=== PATIENT | female | born 1980 | race Caucasian/White ===

== ENCOUNTER → 2016-07-09 | Outpatient (CLI) | payer OTHER | LOC: OD 12:33 | PROVIDERS: ATTEND Internal Medicine Cardiovascular Disease | DX: M62.82 Rhabdomyolysis (principal); E78.00 Pure hypercholesterolemia, unspecified | CPT/HCPCS: 36415; 82550 ==

== ENCOUNTER → 2016-08-06 | Outpatient (CLI) | payer OTHER ==
[2016-08-06 10:08] LABS: CHOLESTEROL 175.95 mg/dL (0-200); Direct HDL 66 mg/dL (>40); TRIGLYCERIDES 51 mg/dL (<150)
[2016-08-06 10:18] LABS: DIRECT LDL 85 mg/dL (<100)
== END ==
LOC: OD 08:58
PROVIDERS: ATTEND Internal Medicine Cardiovascular Disease
DX: E78.00 Pure hypercholesterolemia, unspecified (principal); M62.82 Rhabdomyolysis
CPT/HCPCS: 36415; 80061; 82550

== ENCOUNTER → 2016-09-17 | Outpatient (CLI) | payer OTHER ==
[2016-09-17 11:08] LABS: ANION GAP 11 (5-19); BLOOD UREA NITROGEN 11 mg/dL (7-20); CALCIUM 10.4 mg/dL (8.4-10.2); CARBON DIOXIDE 29 mmol/L (22-30); CHLORIDE 104 mmol/L (98-107); CREATININE RESULT 0.71 mg/dL (0.52-1.25); GLUCOSE 90 mg/dL (75-110); MAGNESIUM 2.3 mg/dL (1.6-2.3); POTASSIUM 5.4 mmol/L (3.6-5.0); SODIUM 143.5 mmol/L (137-145)
== END ==
LOC: OD 09:45
PROVIDERS: ATTEND Internal Medicine Cardiovascular Disease
DX: I10 Essential (primary) hypertension (principal)
CPT/HCPCS: 36415; 80048; 83735

== ENCOUNTER → 2016-11-05 | Outpatient (CLI) | payer OTHER ==
[2016-11-05 12:13] LABS: ALANINE AMINOTRANSFERASE 31 U/L (9-52); ALBUMIN 4.8 g/dL (3.5-5.0); ALKALINE PHOSPHATASE 78 U/L (38-126); ASPARTATE AMINO TRANSFERASE 29 U/L (14-36); BILIRUBIN,DIRECT 0.3 mg/dL (0.0-0.4); BILIRUBIN,TOTAL 0.6 mg/dL (0.2-1.3); CHOLESTEROL 190.97 mg/dL (0-200); CREATINE KINASE 71 U/L (30-135); Direct HDL 72 mg/dL (>40); TOTAL PROTEIN 7.4 g/dL (6.3-8.2); TRIGLYCERIDES 121 mg/dL (<150)
[2016-11-05 12:24] LABS: DIRECT LDL 75 mg/dL (<100)
== END ==
LOC: OD 10:37
PROVIDERS: ATTEND Internal Medicine Cardiovascular Disease
DX: E55.9 Vitamin D deficiency, unspecified (principal); E78.00 Pure hypercholesterolemia, unspecified; I10 Essential (primary) hypertension; M62.82 Rhabdomyolysis
CPT/HCPCS: 36415; 80061; 80076; 82306; 82550

== ENCOUNTER → 2017-03-04 | Outpatient (CLI) | payer OTHER ==
[2017-03-04 11:37] LABS: ALANINE AMINOTRANSFERASE 31 U/L (9-52); ALBUMIN 4.6 g/dL (3.5-5.0); ALKALINE PHOSPHATASE 56 U/L (38-126); ASPARTATE AMINO TRANSFERASE 22 U/L (14-36); BILIRUBIN,DIRECT 0.3 mg/dL (0.0-0.4); BILIRUBIN,TOTAL 0.6 mg/dL (0.2-1.3); TOTAL PROTEIN 6.7 g/dL (6.3-8.2)
== END ==
LOC: OD 10:32
PROVIDERS: ATTEND Internal Medicine Cardiovascular Disease
DX: Z51.81 Encounter for therapeutic drug level monitoring (principal); Z79.899 Other long term (current) drug therapy
CPT/HCPCS: 36415; 80076

== ENCOUNTER → 2017-06-14 | Outpatient (CLI) | payer OTHER ==
[2017-06-14 17:40] LABS: ALANINE AMINOTRANSFERASE 35 U/L (9-52); ALBUMIN 4.9 g/dL (3.5-5.0); ALKALINE PHOSPHATASE 89 U/L (38-126); ANION GAP 11 (5-19); ASPARTATE AMINO TRANSFERASE 39 U/L (14-36); BILIRUBIN,DIRECT 0.1 mg/dL (0.0-0.4); BILIRUBIN,TOTAL 0.3 mg/dL (0.2-1.3); BLOOD UREA NITROGEN 9 mg/dL (7-20); CALCIUM 9.8 mg/dL (8.4-10.2); CARBON DIOXIDE 29 mmol/L (22-30); CHLORIDE 105 mmol/L (98-107); CREATININE RESULT 0.74 mg/dL (0.52-1.25); GLUCOSE 76 mg/dL (75-110); MAGNESIUM 2.1 mg/dL (1.6-2.3); POTASSIUM 4.7 mmol/L (3.6-5.0); SODIUM 144.5 mmol/L (137-145); TOTAL PROTEIN 7.3 g/dL (6.3-8.2)
[2017-06-15 18:25] LABS: CHOLESTEROL 210.93 mg/dL (0-200); Direct HDL 76 mg/dL (>40); TRIGLYCERIDES 117 mg/dL (<150)
[2017-06-15 18:35] LABS: DIRECT LDL 116 mg/dL (<100)
== END ==
LOC: OD 16:35
PROVIDERS: ATTEND Internal Medicine Cardiovascular Disease
DX: E78.00 Pure hypercholesterolemia, unspecified (principal); R00.2 Palpitations; I10 Essential (primary) hypertension; R53.83 Other fatigue
CPT/HCPCS: 36415; 80048; 80061; 80076; 83735

== ENCOUNTER → 2017-07-15 | Outpatient (CLI) | payer OTHER ==
--- NOTE | 2017-07-15 16:26 | RADIOLOGY REPORT (SQ) ---
EXAM DESCRIPTION: CT FACIAL AREA WITHOUT COMPLETED DATE/TIME: 07/15/2017 2:41 pm REASON FOR STUDY: OTHER SUBACUTE SINUSITIS (J01.80) R33.9 RETENTION OF URINE, UNSPECIFIED J01.80 O THER ACUTE SINUSITIS COMPARISON: None. TECHNIQUE: Noncontrasted images through the facial bones and orbits windowed for bone and soft tissu e. Additional coronal and sagittal reconstructed images reviewed. All images stored on PACS. All CT scanners at this facility use dose modulation, iterative reconstruction, and/or weight based d osing when appropriate to reduce radiation dose to as low as reasonably achievable (ALARA). [facility]: Dose Right [facility]: CareDose [facility]: Dose Right [facility]: Teradose 4D [facility]: [employer] RADIATION DOSE: mGy. LIMITATIONS: None. FINDINGS: FACIAL BONES: No fracture or bone lesion. ORBITS: Intact. No fracture. Symmetric intact globes and retroorbital soft tissues. PARANASAL SINUSES: Clear. No significant mucosal thickening, mass or fluid. No nasal polyps. Maxill robert sinus outlets are patent. SOFT TISSUES: No mass or edema. INFERIOR BRAIN: Limited view. No acute findings. OTHER: No other significant finding. IMPRESSION: NO ACUTE FINDINGS. TECHNICAL DOCUMENTATION: JOB ID: [id number] Quality ID # [id number]: Final reports with documentation of one or more dose reduction techniques (e.g., Au tomated exposure control, adjustment of the mA and/or kV according to patient size, use of iterative reconstruction technique) 2010 [employer]- All Rights Reserved
--- NOTE | 2017-07-15 16:28 | RADIOLOGY REPORT (SQ) ---
EXAM DESCRIPTION: U/S NON-OB PELVIS W/O DOP COMPLETED DATE/TIME: 07/15/2017 3:35 pm REASON FOR STUDY: URINE RETENTION (R33.9) R33.9 RETENTION OF URINE, UNSPECIFIED J01.80 OTHER ACUTE SINUSITIS COMPARISON: None. TECHNIQUE: Pre and post void bladder imaging. LIMITATIONS: None. FINDINGS: PREVOID BLADDER VOLUME: 280 ml. POST VOID BLADDER VOLUME: 10 ml. OTHER: No other significant finding. IMPRESSION: NO SONOGRAPHIC ABNORMALITY IN THE BLADDER. BLADDER VOLUMES ABOVE. TECHNICAL DOCUMENTATION: JOB ID: [id number] [employer]- All Rights Reserved
== END ==
LOC: RAD 14:00
PROVIDERS: ATTEND Nurse Practitioner Family
DX: J01.80 Other acute sinusitis (principal); R33.9 Retention of urine, unspecified
CPT/HCPCS: 70486; 76856

== ENCOUNTER → 2017-11-07 | Outpatient (CLI) | payer OTHER ==
[2017-11-07 12:53] LABS: ALANINE AMINOTRANSFERASE 35 U/L (9-52); ALBUMIN 4.7 g/dL (3.5-5.0); ALKALINE PHOSPHATASE 70 U/L (38-126); ANION GAP 10 (5-19); ASPARTATE AMINO TRANSFERASE 27 U/L (14-36); BILIRUBIN,DIRECT 0.3 mg/dL (0.0-0.4); BILIRUBIN,TOTAL 0.3 mg/dL (0.2-1.3); BLOOD UREA NITROGEN 14 mg/dL (7-20); CALCIUM 10.1 mg/dL (8.4-10.2); CARBON DIOXIDE 30 mmol/L (22-30); CHLORIDE 104 mmol/L (98-107); CHOLESTEROL 183.05 mg/dL (0-200); GLUCOSE 102 mg/dL (75-110); POTASSIUM 4.8 mmol/L (3.6-5.0); SODIUM 143.8 mmol/L (137-145); TOTAL PROTEIN 7.1 g/dL (6.3-8.2); TRIGLYCERIDES 112 mg/dL (<150)
[2017-11-07 13:04] LABS: DIRECT LDL 88 mg/dL (<100)
[2017-11-08 07:03] LABS: THYROGLOBULIN AB SO <1.0 IU/mL (0.0-0.9); THYROID PEROXIDASE (TPO) AB 11 IU/mL (0-34)
== END ==
LOC: OD 11:13
PROVIDERS: ATTEND Internal Medicine Cardiovascular Disease
DX: E78.00 Pure hypercholesterolemia, unspecified (principal); R00.2 Palpitations; R94.5 Abnormal results of liver function studies; L50.9 Urticaria, unspecified
CPT/HCPCS: 36415; 80048; 80061; 80076; 84443; 86376; 86800

== ENCOUNTER 2017-11-28 16:51 | Observation (INO) | payer OTHER ==
[2017-11-28] MEDS ORDERED: ASPIRIN 81 MG TABLET, CHEWABLE PO ONE (18:45)
--- NOTE | 2017-11-28 18:47 | ER Document Report ---
ED Medical Screen (RME) - General Chief Complaint: Chest Pain Stated Complaint: CHEST PAIN Time Seen by Provider: 11/28/17 18:41 TRAVEL OUTSIDE OF THE [place] IN LAST 30 DAYS: No - HPI Patient complains to provider of: chest pain Notes: 11/28/17 18:46 Normally healthy 37-year-old female presents with concerning story of episodic crushing chest pain substernal 04/05 without radiation has made her get profoundly short of breath. First episode woke her from sleep Tuesday night. Had another 2 episodes with exertion on Tuesday because you are very concerned. Patient now endorses increased dyspnea with mild exertion. Patient was seen by her PCP Dr. Diaz ( critical care) EKG has T-wave inversions repeated with our EKG here in the department. Concern for possible cardiac etiology of chest pain versus pulmonary embolus. Patient denies any constitutional symptoms or any sick contacts or travel. No history of lung pathology or pneumonia. - Related Data Allergies/Adverse Reactions: No Known Allergies Allergy (Verified 04/08/16 18:08) Past Medical History - Social History Chew tobacco use (# tins/day): No Frequency of alcohol use: Occasional Drug Abuse: Marijuana - Past Medical History Cardiac Medical History: Reports: Hx Hypertension Denies: Hx Coronary Artery Disease, Hx Heart Attack Pulmonary Medical History: Denies: Hx Asthma, Hx Bronchitis, Hx COPD, Hx Pneumonia Neurological Medical History: Reports: Hx Migraine. Denies: Hx Cerebrovascular Accident, Hx Seizures Renal/ Medical History: Denies: Hx Peritoneal Dialysis GI Medical History: Reports: Hx Irritable Bowel. Denies: Hx Hepatitis, Hx Hiatal Hernia, Hx Ulcer Musculoskeltal Medical History: Denies Hx Arthritis Psychiatric Medical History: Reports: Hx Depression Infectious Medical History: Denies: Hx Hepatitis Past Surgical History: Reports: Hx Bowel Surgery - colon resection, rectal prolapse, Hx Cholecystectomy, Hx Gynecologic Surgery, Hx Hysterectomy, Hx Urinary Tract Surgery - bladder/vaginal prolapse. Denies: Hx Mastectomy, Hx Open Heart Surgery, Hx Pacemaker - Immunizations Hx Diphtheria, Pertussis, Tetanus Vaccination: Yes Physical Exam - Vital signs Vitals: Temp Pulse Resp BP Pulse Ox 98.1 F 56 L 18 146/84 H 56 L 11/28/17 17:21 11/28/17 17:21 11/28/17 17:21 11/28/17 17:21 11/28/17 17:21 Course - Vital Signs Vital signs: Temp Pulse Resp BP Pulse Ox 98.1 F 56 L 18 146/84 H 56 L 11/28/17 17:21 11/28/17 17:21 11/28/17 17:21 11/28/17 17:21 11/28/17 17:21 Doctor's Discharge - Discharge Referrals: LICHA DIAZ MD [Primary Care Provider] - Follow up as needed
[2017-11-28 19:11] LABS: ABSOLUTE BASOPHILS # (AUTO) 0.1 10^3/uL (0.0-0.2); ABSOLUTE EOSINOPHILS # (AUTO) 0.2 10^3/uL (0.0-0.6); ABSOLUTE MONOCYTES (AUTO) 0.6 10^3/uL (0.1-1.4); ABSOLUTE NEUT (AUTO) 4.5 10^3/uL (1.7-8.2); BASOPHILS % (AUTO) 0.9 % (0-2); EOSINOPHILS % (AUTO) 2.7 % (0-6); HEMATOCRIT 39.3 % (36.0-47.0); HEMOGLOBIN 13.4 g/dL (12.0-15.5); LYMPHOCYTES % (AUTO) 35.8 % (13-45); MEAN CORPUSCULAR HGB CONC 34.1 g/dL (32.0-36.0); MEAN CORPUSCULAR VOLUME 94 fl (80-97); MONOCYTES % (AUTO) 6.7 % (3-13); PLATELET COUNT 233 10^3/uL (150-450); RED BLOOD COUNT 4.18 10^6/uL (3.72-5.28); RED CELL DISTRIBUTION WIDTH 13.2 % (11.5-14.0); SEGMENTED NEUTROPHILS % (AUTO) 53.9 % (42-78); TOTAL CELLS COUNTED % (AUTO) 100 %; WHITE BLOOD COUNT 8.3 10^3/uL (4.0-10.5)
--- NOTE | 2017-11-28 19:17 | RADIOLOGY REPORT (SQ) ---
EXAM DESCRIPTION: CHEST 2 VIEWS COMPLETED DATE/TIME: 11/28/2017 7:07 pm REASON FOR STUDY: chest pain COMPARISON: 04/28/2015 EXAM PARAMETERS: NUMBER OF VIEWS: two views TECHNIQUE: Digital Frontal and Lateral radiographic views of the chest acquired. RADIATION DOSE: NA LIMITATIONS: none FINDINGS: LUNGS AND PLEURA: No opacities, masses or pneumothorax. No pleural effusion. MEDIASTINUM AND HILAR STRUCTURES: No masses or contour abnormalities. HEART AND VASCULAR STRUCTURES: Heart normal size. No evidence for failure. BONES: No acute findings. HARDWARE: None in the chest. OTHER: No other significant finding. IMPRESSION: NO ACUTE RADIOGRAPHIC FINDING IN THE CHEST. TECHNICAL DOCUMENTATION: JOB ID: [id number] [employer]- All Rights Reserved Reading location - IP/workstation name: [email or web address]
[2017-11-28 19:26] LABS: ANION GAP 9 (5-19); BLOOD UREA NITROGEN 12 mg/dL (7-20); CALCIUM 10.1 mg/dL (8.4-10.2); CARBON DIOXIDE 29 mmol/L (22-30); CHLORIDE 103 mmol/L (98-107); GLUCOSE 83 mg/dL (75-110); POTASSIUM 4.3 mmol/L (3.6-5.0); SODIUM 140.6 mmol/L (137-145)
[2017-11-28 19:39] LABS: NT PRO BNP 34 pg/mL (<125); TROPONIN I < 0.012 ng/mL
--- NOTE | 2017-11-28 20:01 | EKG REPORT ---
SEVERITY:- BORDERLINE ECG - SINUS RHYTHM BORDERLINE T ABNORMALITIES, ANTERIOR LEADS : Confirmed by: Cecilia Gardner MD 28-Nov-2017 20:00:46
--- NOTE | 2017-11-28 21:01 | ER Document Report ---
ED General - General Chief Complaint: Chest Pain Stated Complaint: CHEST PAIN Time Seen by Provider: 11/28/17 18:41 Mode of Arrival: Ambulatory Information source: Patient, Dr. Office - called and spoke with me Notes: 37-year-old female history of hypertension hyperlipidemia mitral valve prolapse presents with complaints of chest pain now 2 day duration. Patient was seen by the weir fisher and sent in for further evaluation care he did note new EKG changes V2 V3 inverted T waves. Patient notes significant family history of coronary artery disease including early deaths and uncle TRAVEL OUTSIDE OF THE [place] IN LAST 30 DAYS: No - HPI Onset: Other - 2 daY DURATION Onset/Duration: Waxing and waning Quality of pain: Pressure Severity: Mild Pain Level: 2 Associated symptoms: Chest pain Exacerbated by: Denies Relieved by: Denies Similar symptoms previously: No Recently seen / treated by doctor: Yes - Related Data Allergies/Adverse Reactions: No Known Allergies Allergy (Verified 04/08/16 18:08) Past Medical History - Social History Smoking Status: Never Smoker Cigarette use (# per day): No Chew tobacco use (# tins/day): No Smoking Education Provided: No Frequency of alcohol use: Occasional Drug Abuse: Marijuana Family History: CAD - Extensive family history of coronary artery disease Patient has suicidal ideation: No Patient has homicidal ideation: No - Past Medical History Cardiac Medical History: Reports: Hx Hypertension Denies: Hx Coronary Artery Disease, Hx Heart Attack Pulmonary Medical History: Denies: Hx Asthma, Hx Bronchitis, Hx COPD, Hx Pneumonia Neurological Medical History: Reports: Hx Migraine. Denies: Hx Cerebrovascular Accident, Hx Seizures Renal/ Medical History: Denies: Hx Peritoneal Dialysis GI Medical History: Reports: Hx Irritable Bowel. Denies: Hx Hepatitis, Hx Hiatal Hernia, Hx Ulcer Musculoskeltal Medical History: Denies Hx Arthritis Psychiatric Medical History: Reports: Hx Depression Infectious Medical History: Denies: Hx Hepatitis Past Surgical History: Reports: Hx Bowel Surgery - colon resection, rectal prolapse, Hx Cholecystectomy, Hx Gynecologic Surgery, Hx Hysterectomy, Hx Urinary Tract Surgery - bladder/vaginal prolapse. Denies: Hx Mastectomy, Hx Open Heart Surgery, Hx Pacemaker - Immunizations Hx Diphtheria, Pertussis, Tetanus Vaccination: Yes Review of Systems - Review of Systems Notes: REVIEW OF SYSTEMS: CONSTITUTIONAL : Denies fever, chills, or sweats. Denies recent illness. EENT: Denies eye, ear, throat, or mouth pain or symptoms. Denies nasal or sinus congestion or discharge. Denies throat, tongue, or mouth swelling or difficulty swallowing. CARDIOVASCULAR: Admits to chest pain RESPIRATORY: Denies cough, cold, or chest congestion. Denies shortness of breath, difficulty breathing, or wheezing. GASTROINTESTINAL: Denies abdominal pain or distention. Denies nausea, vomiting , or diarrhea. Denies blood in vomitus, stools, or per rectum. Denies black, tarry stools. Denies constipation. GENITOURINARY: Denies difficulty urinating, painful urination, burning, frequency, blood in urine, or discharge. FEMALE GENITOURINARY: Denies vaginal bleeding, heavy or abnormal periods, irregular periods. Denies vaginal discharge or odor. MUSCULOSKELETAL: Denies back or neck pain or stiffness. Denies joint pain or swelling. SKIN: Denies rash, lesions or sores. HEMATOLOGIC : Denies easy bruising or bleeding. LYMPHATIC: Denies swollen, enlarged glands. NEUROLOGICAL: Denies confusion or altered mental status. Denies passing out or loss of consciousness. Denies dizziness or lightheadedness. Denies headache. Denies weakness or paralysis or loss of use of either side. Denies problems with gait or speech. Denies sensory loss, numbness, or tingling. Denies seizures. PSYCHIATRIC: Denies anxiety or stress. Denies depression, suicidal ideation, or homicidal ideation. ALL OTHER SYSTEMS REVIEWED AND NEGATIVE. PHYSICAL EXAMINATION: GENERAL: Well-appearing, well-nourished and in no acute distress. HEAD: Atraumatic, normocephalic. EYES: Pupils equal round and reactive to light, extraocular movements intact, conjunctiva are normal. ENT: Nares patent, oropharynx clear without exudates. Moist mucous membranes. NECK: Normal range of motion, supple without lymphadenopathy LUNGS: Breath sounds clear to auscultation bilaterally and equal. No wheezes rales or rhonchi. HEART: Regular rate and rhythm without murmurs ABDOMEN: Soft, nontender, nondistended abdomen. No guarding, no rebound. No masses appreciated. Female : deferred Musculoskeletal: Normal range of motion, no pitting or edema. No cyanosis. NEUROLOGICAL: Cranial nerves grossly intact. Normal speech, normal gait. Normal sensory, motor exams PSYCH: Normal mood, normal affect. SKIN: Warm, Dry, normal turgor, no rashes or lesions noted. Dictation was performed using [employer] voice recognition software Physical Exam - Vital signs Vitals: Temp Pulse Resp BP Pulse Ox 98.1 F 56 L 18 146/84 H 56 L 11/28/17 17:21 11/28/17 17:21 11/28/17 17:21 11/28/17 17:21 11/28/17 17:21 Course - Re-evaluation Re-evalutation: 11/28/17 21:28 Patient's workup here is quite benign however given extensive family history extensive risk factors the weir fisher and I do agree that further workup is appropriate , patient will be observed in the hospital is otherwise stable 11/28/17 21:28 - Vital Signs Vital signs: Temp Pulse Resp BP Pulse Ox 98.1 F 56 L 17 142/96 H 99 11/28/17 17:21 11/28/17 17:21 11/28/17 20:31 11/28/17 20:31 11/28/17 20:31 - Laboratory Result Diagrams: 11/28/17 18:57 11/28/17 18:57 - Diagnostic Test Radiology reviewed: Image reviewed - chest xray 2 view otes no acute abnormality , Reports reviewed - EKG Interpretation by Me EKG shows normal: Sinus rhythm, Cowley, Intervals, QRS Complexes Discharge - Discharge Clinical Impression: MVP (mitral valve prolapse) Chest pain Qualifiers: Chest pain type: unspecified Qualified Code(s): R07.9 - Chest pain, unspecified Condition: Stable Disposition: ADMITTED OBSERVATION Admitting Provider: Hospitalist Unit Admitted: Telemetry
[2017-11-28] MEDS ORDERED: OXYCODONE-ACETAMINOPHEN 5-325 MG TABLET PO PRN (21:20)
[2017-11-28] MEDS ORDERED: DEXTROSE 40% GEL 15 GM TUBE PO PRN ×2 (21:20)
[2017-11-28] MEDS ORDERED: GLUCAGON,HUMAN RECOMB 1 MG INJ SUBCUT PRN (21:20)
[2017-11-28] MEDS ORDERED: DEXTROSE 50%-WATER 25 GM/50 ML DISP.SYRIN IV PRN ×2 (21:20)
--- NOTE | 2017-11-28 22:37 | PDOC H&P ---
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 Eisenberg for chest pain. Patient describes the chest pain as tightening and pressure over her precordium radiating to both shoulders and it is excruciating sometimes. She denied any trauma to the chest but she has associated shortness of breath with chest pain. Patient has history of hypertension and hyperlipidemia and extensive family history of cardiac disease and ID in her early 30s. Her EKG shows inverted T-wave in lead II and III which is new. Patient denied any fever, cough, palpitation or diaphoresis. No nausea, vomiting, diarrhea, dysuria. No headache dizziness or blurry vision. Past Medical History Cardiac Medical History: Reports: Hypertension Denies: Coronary Artery Disease, Myocardial Infarction Pulmonary Medical History: Denies: Asthma, Bronchitis, Chronic Obstructive Pulmonary Disease (COPD), Pneumonia Neurological Medical History: Reports: Migraine Denies: Seizures GI Medical History: Denies: Hepatitis, Hiatal Hernia Musculoskeltal Medical History: Denies: Arthritis Psychiatric Medical History: Reports: Depression Hematology: Denies: Anemia, Sickle Cell Disease Past Surgical History Past Surgical History: Reports: Cholecystectomy, Hysterectomy Denies: Amputation, Mastectomy, Pacemaker Social History Smoking Status: Never Smoker Frequency of Alcohol Use: Occasional - Advance Directive Resuscitation Status: Full Code Family History Family History: CAD - Extensive family history of coronary artery disease Parental Family History Reviewed: Yes Children Family History Reviewed: Yes Sibling(s) Family History Reviewed.: Yes Medication/Allergy Home Medications: Cetirizine HCl [Zyrtec] 10 mg PO DAILY 02/11/15 Ergocalciferol (Vitamin D2) [Vitamin D] 1,000 unit PO DAILY 11/28/17 Folic Acid 1 mg PO DAILY 11/28/17 Lisinopril 20 mg PO DAILY 11/28/17 Magnesium 400 mg PO DAILY 11/28/17 Multivitamin [Multivitamins] 1 cap PO DAILY 11/28/17 Oxybutynin Chloride [Oxybutynin Chloride ER] 20 mg PO DAILY 11/28/17 Rosuvastatin Calcium [Crestor] 20 mg PO DAILY 11/28/17 Sertraline HCl [Zoloft] 25 mg PO DAILY 11/28/17 Allergies/Adverse Reactions: No Known Allergies Allergy (Verified 10/13/16 18:08) Review of Systems Constitutional: ABSENT: chills, fever(s), headache(s), weight gain, weight loss Ears: ABSENT: hearing changes Cardiovascular: ABSENT: chest pain, dyspnea on exertion, edema, orthropnea, palpitations Respiratory: ABSENT: cough, hemoptysis Gastrointestinal: ABSENT: abdominal pain, constipation, diarrhea, hematemesis, hematochezia, nausea, vomiting Neurological: ABSENT: abnormal gait, abnormal speech, confusion, dizziness, focal weakness, syncope Psychiatric: ABSENT: anxiety, depression, homidical ideation, suicidal ideation Physical Exam Vital Signs: Temp Pulse Resp BP Pulse Ox 98.1 F 56 L 19 131/86 H 99 11/28/17 17:21 11/28/17 17:21 11/28/17 21:30 11/28/17 21:30 11/28/17 21:30 General appearance: PRESENT: no acute distress, well-developed, well-nourished Head exam: PRESENT: atraumatic, normocephalic Eye exam: PRESENT: conjunctiva pink, EOMI, PERRLA. ABSENT: scleral icterus Neck exam: ABSENT: carotid bruit, JVD, lymphadenopathy, thyromegaly Respiratory exam: PRESENT: clear to auscultation gayathri. ABSENT: rales, rhonchi, wheezes Cardiovascular exam: PRESENT: RRR. ABSENT: diastolic murmur, rubs, systolic murmur GI/Abdominal exam: PRESENT: normal bowel sounds, soft. ABSENT: distended, guarding, mass, organolmegaly, rebound, tenderness Extremities exam: PRESENT: full ROM. ABSENT: calf tenderness, clubbing, pedal edema Neurological exam: PRESENT: alert, awake, oriented to person, oriented to place , oriented to time, oriented to situation, CN II-XII grossly intact. ABSENT: motor sensory deficit Psychiatric exam: PRESENT: appropriate affect, normal mood. ABSENT: homicidal ideation, suicidal ideation Results Impressions: Chest X-Ray 11/28/17 18:45 IMPRESSION: NO ACUTE RADIOGRAPHIC FINDING IN THE CHEST. Assessment & Plan - Diagnosis (1) Hypertension Qualifiers: Hypertension type: essential hypertension Qualified Code(s): I10 - Essential (primary) hypertension Is this a current diagnosis for this admission?: Yes Plan: Continue home medication (2) Hyperlipidemia Qualifiers: Hyperlipidemia type: unspecified Qualified Code(s): E78.5 - Hyperlipidemia , unspecified Is this a current diagnosis for this admission?: Yes Plan: Continue her home medication (3) Chest pain Qualifiers: Chest pain type: unspecified Qualified Code(s): R07.9 - Chest pain, unspecified Is this a current diagnosis for this admission?: Yes Plan: Cardiac stress test in the morning. Cycle her cardiac enzymes and repeat EKG. (4) MVP (mitral valve prolapse) Is this a current diagnosis for this admission?: Yes Plan: Per her primary corduroy cutting supervisor. - Time Critical Time spent with patient: 25-34 minutes
[2017-11-29] MEDS ORDERED: LANSOPRAZOLE 30 MG TAB.RAP.DR PO SCH (06:00)
[2017-11-29 07:38] LABS: ANION GAP 12 (5-19); BLOOD UREA NITROGEN 13 mg/dL (7-20); CALCIUM 9.8 mg/dL (8.4-10.2); CARBON DIOXIDE 25 mmol/L (22-30); CHLORIDE 107 mmol/L (98-107); GLUCOSE 93 mg/dL (75-110); POTASSIUM 4.7 mmol/L (3.6-5.0); SODIUM 143.8 mmol/L (137-145)
[2017-11-29] MEDS ORDERED: ENOXAPARIN SODIUM INJ 40 MG/0.4 ML DISP.SYRIN SUBCUT SCH (10:00)
--- NOTE | 2017-11-29 13:08 | DRAGON STRESS TEST REPORT ---
EXERCISE TREADMILL TEST. DATE OF PROCEDURE: November 30, 2017 INDICATION: Patient with unspecified chest pain, increased ventricular ectopy. Coronary risk factors: Hypertension, dyslipidemia Resting EKG: Sinus rhythm, no baseline ST segment changes. Occasional VPCs noted Stress EKG: No significant changes noted with with exercise treadmill. Patient did have marked increased ventricular ectopy, often in bigeminy pattern which resolved by 4 minutes into recovery. Reason for termination: Dyspnea and fatigue. Patient did complain of chest pain during the early part of stress test. PROCEDURE REPORT: Baseline heart rate: 57 beats per minute with blood pressure of 120/87. Patient had no significant complaints at baseline. Patient was exercised on a standard Cameron protocol. Patient exercised for total of 9 minutes and 05 seconds. Exercise was stopped because of fatigue and shortness of breath. Patient denied any chest arm or neck discomfort during the exercise, at peak exercise or in recovery. If automatic blood pressure recorded and if felt not accurate manual blood pressure then were recorded at appropriate intervals. Peak heart rate: 157 bpm, 85 of predicted maximum. Peak blood pressure: 163/82 mmHg. Double product: 24.6 kcal Exercise EKG: Showed some baseline artifact during exercise but no significant ST segment changes noted. CONCLUSIONS: Average exercise tolerance. Negative EKG changes with exercise. Increased ventricular ectopy noted in early recovery. Patient did complain of mild chest pain during the early part of treadmill stress test. Please note that CAD not ruled out and single-vessel disease could be missed. RECOMMENDATIONS: Aggressive risk factor modification, medical therapy. Further evaluation may become necessary if continued symptoms. Recommend 2D echocardiogram, cardiac CTA etc. if clinically indicated.. Lorri Infante M.D., [employer] Install[employer] authorizer, Board certified in cardiovascular diseases, Nuclear cardiology, Echocardiography Cardiac CT and cardiac MRI Ph. [phone] [facility]
[2017-11-29 16:15] VITALS: BP 112/76
[2017-11-29] MEDS ORDERED: ONDANSETRON 4 MG TAB.RAPDIS PO ONE (17:00)
--- NOTE | 2017-11-29 19:16 | XCELERA REPORT ---
[address] [address] Transthoracic Echocardiogram Report Name: STACEY HEALY Age: 37 yrs Gender: Female : 1980 Patient Status: Inpatient Patient Location: [address] [place] [address] Study Date: 11/29/2017 08:43 AM Reason For Study: Chest pain Ordering Physician: SAMREEN WOODWARD Performed By: Stephanie Gallo Interpretation Summary Poor study, with poor R heart, AV visualisation and sampling No by doppler, but configuration not discerned, no AR. Mild Iliana annular calcium, no MVP, no MS, mild MR with no LA enlargement. Mild Post wall hypertrophy 11 mm, IVS thinner 8mm by comparison , and inferoseptal wall appears mildly hypokinetic., LVEF 65-70%, no LV enlargement R heart poorly imaged, no RH enlargement suspected TR not sampled to derive RVSP, unable to r/o pulm hypertension. MMode/2D Measurements & Calculations RVDd: 2.9 cm LVIDd: 4.9 cm FS: 44.7 % Ao root diam: IVSd: 0.81 cm LVIDs: 2.7 cm EDV(Teich): 2.4 cm LVPWd: 1.1 cm 112.0 ml Ao root area: ESV(Teich): 4.7 cm2 27.0 ml EF(Teich): 75.9 % LVOT diam: EDV(MOD-sp4): SV(MOD-sp4): 1.5 cm 50.9 ml 40.8 ml LVOT area: ESV(MOD-sp4): 1.9 cm2 10.1 ml EF(MOD-sp4): 80.2 % Doppler Measurements & Calculations MV E max min: MV dec slope: Ao V2 max: LV V1 max P.4 cm/sec 286.9 cm/sec2 130.6 cm/sec 4.1 mmHg MV A max min: MV dec time: Ao max PG: LV V1 max: 74.7 cm/sec 0.31 sec 6.8 mmHg 101.3 cm/sec MV E/A: 1.2 GREGORIO(V,D): 1.5 cm2 PA V2 max: PI end-d min: 79.7 cm/sec 55.5 cm/sec PA max P.5 mmHg Left Ventricle The left ventricle is normal in size. There is mild asymmetric left ventricular hypertrophy. The left ventricular ejection fraction is normal. The E/E' ratio between the mitral E wave and the mitral annulus E' wave is normal, with a value of < 10. There is inferoseptal wall mild hypokinesis. There is no thrombus. Right Ventricle The right ventricle is normal in size, thickness and function. The right ventricular systolic function is normal. Atria The right atrium is normal. The left atrial size is normal. The interatrial septum is intact with no evidence for an atrial septal defect. Mitral Valve There is mild mitral annular calcification. There is no evidence of mitral valve prolapse. There is no mitral valve stenosis. There is no mitral regurgitation noted. Aortic Valve The aortic valve is not well visualized secondary to technical limitations. There is no aortic valve stenosis. No aortic regurgitation is present. Tricuspid Valve The tricuspid valve is not well visualized secondary to technical limitations. No tricuspid regurgitation. Pulmonic Valve There is a mild amount of pulmonic regurgitation. Great Vessels The aortic root is normal size. Effusions Minimal pericardial effusion. I WMSI = 1.19 % Normal = 81 Segments Size X - Cannot 1 - Normal 2 - 3 - Akinetic4 - 1-2 small Interpret Hypokinetic Dyskinetic 3-5 moderate 5 - 6-14 large Aneurysmal 15-16 diffuse : SAMREEN WOODWARD > Yeyo Eisenberg
--- NOTE | 2017-11-29 20:43 | PDOC DISCHARGE SUMMARY ---
<SUPRIYA PASTOR - Last Filed: 11/29/17 20:25> General - Admit/Disc Date/PCP Admission Date/Primary Care Provider: 11/28/17 21:07 Discharge Date: 11/29/17 - Discharge Diagnosis (1) Chest pain Is this a current diagnosis for this admission?: Yes Summary: The patient was admitted for observational admission with Chest Pain work up. Initial EKG demonstrated Normal Sinus Rhythm with inverted T-wavs to V1-V3 ( changed from previously) but without evidence of active ischemia or infarction. Chest xray was benign. Serial troponins, proBNP, and d-dimer all negative. Lipid panel (11/07/17) acceptable. Thyroid panel is normal. Echocardiogram is pending at time of discharge; patient was offered to stay inpatient until testing results were available. However, as the echocardiogram is being read by her established outpatient coat examiner, the patient felt comfortable with discharge to home and close follow up. Stress test was negative for ST segment changes, however, did note increased ventricular ectopy during early recovery. The risks/benefits/side effects of addition of beta-jimbo therapy for reduction of PVC frequency was discussed with the patient. She was advised that this medication could be initiated by her outpatient Fence Installer Helper. As the patient is rhythm aware and experiences chest discomfort during episodes of frequent PVCs, she elected to be discharged on Toprol XL. She was advised to hold her lisinopril until her follow up appointment with her primary care provider as she likely will not require the currently prescribed lisinopril dose. She was encouraged to begin a daily aspirin regiment and to continue her statin therapy as prescribed. The patient was advised to follow up with her primary care provider within 1 week. She was also encouraged to notify her Fence Installer Helper of her admission/discharge and to follow up as directed. (2) Hyperlipidemia Is this a current diagnosis for this admission?: Yes Summary: Continue home dose statin. (3) Hypertension Is this a current diagnosis for this admission?: Yes Summary: Normotensive on home dose lisinopril. The patient elected to be transitioned to Toprolol XL for frequent PVCs. She was advised to hold her lisinopril until otherwise directed at her follow up appointment with PCP and/or Fence Installer Helper as she likely will not require the same dose while on metorpolol. (4) MVP (mitral valve prolapse) Is this a current diagnosis for this admission?: Yes Summary: Plan per primary coat examiner. - Additional Information Resuscitation Status: Full Code Discharge Diet: Cardiac Discharge Activity: Activity As Tolerated, Slowly Increase Activity Prescriptions: Aspirin [Ecotrin 81 mg EC Tablet] 81 mg PO DAILY #1 pkg Metoprolol Succinate [Toprol Xl 25 mg Tab.sr] 25 mg PO DAILY #30 tab.sr.24h Ondansetron [Ondansetron Odt] 4 mg PO Q6H #12 tab.rapdis Home Medications: Cetirizine HCl [Zyrtec] 10 mg PO DAILY 02/11/15 Ergocalciferol (Vitamin D2) [Vitamin D] 1,000 unit PO DAILY 11/28/17 Folic Acid 1 mg PO DAILY 11/28/17 Magnesium 400 mg PO DAILY 11/28/17 Multivitamin [Multivitamins] 1 cap PO DAILY 11/28/17 Oxybutynin Chloride [Oxybutynin Chloride ER] 20 mg PO DAILY 11/28/17 Rosuvastatin Calcium [Crestor] 20 mg PO DAILY 11/28/17 Sertraline HCl [Zoloft] 25 mg PO DAILY 11/28/17 Aspirin [Ecotrin 81 mg EC Tablet] 81 mg PO DAILY #1 pkg 11/29/17 Metoprolol Succinate [Toprol Xl 25 mg Tab.sr] 25 mg PO DAILY #30 tab.sr.24h 11/11 Ondansetron [Ondansetron Odt] 4 mg PO Q6H #12 tab.rapdis 11/29/17 History of Present Illness History of Present Illness: Per H&P by Dr. Baumann: STACEY HEALY is a 37 year old female sent referred from her primary coat examiner office of Dr. Eisenberg for chest pain. Patient describes the chest pain as tightening and pressure over her precordium radiating to both shoulders and it is excruciating sometimes. She denied any trauma to the chest but she has associated shortness of breath with chest pain. Patient has history of hypertension and hyperlipidemia and extensive family history of cardiac disease and HI in her early 30s. Her EKG shows inverted T- wave in lead II and III which is new. Patient denied any fever, cough, palpitation or diaphoresis. No nausea, vomiting, diarrhea, dysuria. No headache dizziness or blurry vision. Physical Exam Vital Signs: Temp Pulse Resp BP Pulse Ox 98.5 F 58 L 20 122/72 100 11/29/17 12:23 11/29/17 12:23 11/29/17 12:23 11/29/17 12:23 11/29/17 12:23 Intake & Output 11/28/17 11/29/17 11/30/17 06:59 06:59 06:59 Intake Total 230 Balance 230 Weight 83 kg General appearance: PRESENT: no acute distress, obese, well-developed, well- nourished Head exam: PRESENT: atraumatic, normocephalic Eye exam: PRESENT: conjunctiva pink, EOMI, PERRLA. ABSENT: scleral icterus Ear exam: PRESENT: normal external ear exam Mouth exam: PRESENT: moist, tongue midline Neck exam: ABSENT: carotid bruit, JVD, lymphadenopathy, thyromegaly Respiratory exam: PRESENT: clear to auscultation gayathri. ABSENT: rales, rhonchi, wheezes Cardiovascular exam: PRESENT: RRR, +S1, +S2. ABSENT: diastolic murmur, rubs, systolic murmur Pulses: PRESENT: normal dorsalis pedis pul Vascular exam: PRESENT: normal capillary refill GI/Abdominal exam: PRESENT: normal bowel sounds, soft. ABSENT: distended, guarding, mass, organolmegaly, rebound, tenderness Rectal exam: PRESENT: deferred Extremities exam: PRESENT: full ROM. ABSENT: calf tenderness, clubbing, pedal edema Neurological exam: PRESENT: alert, awake, oriented to person, oriented to place , oriented to time, oriented to situation, CN II-XII grossly intact. ABSENT: motor sensory deficit Psychiatric exam: PRESENT: anxious, appropriate affect, normal mood. ABSENT: homicidal ideation, suicidal ideation Skin exam: PRESENT: dry, intact, warm. ABSENT: cyanosis, rash Results Laboratory Results: 11/29/17 06:18 11/29/17 06:18 Sodium 143.8 Potassium 4.7 Chloride 107 Carbon Dioxide 25 Anion Gap 12 BUN 13 Creatinine 0.65 Est GFR ( Amer) > 60 Est GFR (Non-Af Amer) > 60 Glucose 93 Calcium 9.8 11/29/17 06:18 Troponin I < 0.012 Impressions: Chest X-Ray 11/28/17 18:45 IMPRESSION: NO ACUTE RADIOGRAPHIC FINDING IN THE CHEST. Qualifiers - * PATIENT BEING DISCHARGED WITH ANY OF THE FOLLOWING DIAGNOSIS: No Plan Discharge Plan: Follow up with primary care provider within 1 week. Begin daily ASA and metoprolol (for frequent PVCs associated w/ sensation of palpitations); hold lisinopril until directed otherwise by either PCP or Fence Installer Helper. Follow up with Fence Installer Helper as scheduled. Consider outpatient cardiac catheterization for persistent chest pain. Return to the ED for acute chest pain. Time Spent: Less than 30 Minutes <MENDYOCTOBER Rylie - Last Filed: 11/30/17 16:04> General - Admit/Disc Date/PCP Admission Date/Primary Care Provider: 11/28/17 21:07 History of Present Illness History of Present Illness: STACEY HEALY is a 37 year old female Physical Exam Vital Signs: Temp Pulse Resp BP Pulse Ox 98.5 F 66 20 112/76 100 11/29/17 16:14 11/29/17 16:14 11/29/17 16:14 11/29/17 16:14 11/29/17 16:14 Intake & Output 11/29/17 11/30/17 12/01/17 06:59 06:59 06:59 Intake Total 230 Balance 230 Weight 83 kg Results Laboratory Results: 11/29/17 06:18 11/29/17 06:18 Troponin I < 0.012 Impressions: Chest X-Ray 11/28/17 18:45 IMPRESSION: NO ACUTE RADIOGRAPHIC FINDING IN THE CHEST. Plan Discharge Plan: Co signing note for Supriya Pastor NP
== END 2017-11-29 16:48 | disposition home or self-care (01) ==
LOC: ER 16:51 → EH 21:07 → 5 23:10
PROVIDERS: ADMIT Internal Medicine; ATTEND Internal Medicine
DX: I49.3 Ventricular premature depolarization (principal); E78.5 Hyperlipidemia, unspecified; I10 Essential (primary) hypertension; I34.1 Nonrheumatic mitral (valve) prolapse; I25.2 Old myocardial infarction; E66.9 Obesity, unspecified; F12.10 Cannabis abuse, uncomplicated; Z68.32 Body mass index [BMI] 32.0-32.9, adult; Z79.899 Other long term (current) drug therapy; Z82.49 Family history of ischemic heart disease and other diseases of the circulatory system; Z90.49 Acquired absence of other specified parts of digestive tract; Z90.710 Acquired absence of both cervix and uterus
CPT/HCPCS: 93005; 99285; 36415 ×2; 85025; 80048 ×2; 84484 ×2; 85379; 83880; 93306; 93017; 71046; 93010; G0378 ×3; S0119; J1650; J3490

== ENCOUNTER → 2017-11-28 | Outpatient (CLI) | payer OTHER ==
[2017-11-28 16:27] LABS: HEMOGLOBIN 13.2 g/dL (12.0-15.5); MEAN CORPUSCULAR HEMOGLOBIN 32.1 pg (27.0-33.4); MEAN CORPUSCULAR HGB CONC 33.9 g/dL (32.0-36.0); MEAN CORPUSCULAR VOLUME 95 fl (80-97); PLATELET COUNT 229 10^3/uL (150-450); RED BLOOD COUNT 4.12 10^6/uL (3.72-5.28); RED CELL DISTRIBUTION WIDTH 13.2 % (11.5-14.0); WHITE BLOOD COUNT 7.7 10^3/uL (4.0-10.5)
[2017-11-28 16:57] LABS: URIC ACID 4.2 mg/dL (2.5-7.0)
[2017-11-28 17:13] LABS: FREE T4 (FREE THYROXINE) 0.87 ng/dL (0.78-2.19)
[2017-11-28 17:27] LABS: THYROID STIMULATING HORMONE 1.38 uIU/mL (0.47-4.68)
== END ==
LOC: OD 15:08
PROVIDERS: ATTEND Internal Medicine Cardiovascular Disease
DX: E55.9 Vitamin D deficiency, unspecified (principal); R53.83 Other fatigue
CPT/HCPCS: 36415; 82010; 82306; 82607; 83735; 84439; 84443; 84550; 85027; 86141

== ENCOUNTER → 2017-12-02 | Outpatient (CLI) | payer OTHER ==
--- NOTE | 2017-12-02 13:32 | RADIOLOGY REPORT (SQ) ---
EXAM DESCRIPTION: FINGERS LEFT COMPLETED DATE/TIME: 12/02/2017 1:03 pm REASON FOR STUDY: FINGER PAIN,LEFT COMPARISON: None. NUMBER OF VIEWS: Three views. TECHNIQUE: AP, lateral, and oblique images acquired of the left third finger. LIMITATIONS: None. FINDINGS: MINERALIZATION: Normal. BONES: No acute fracture or dislocation. No worrisome bone lesions. No significant osteophytes. JOINTS: No erosions. No libia-articular osteopenia. No chondrocalcinosis. SOFT TISSUES: No swelling. No calcifications. OTHER: No other significant finding. IMPRESSION: NEGATIVE RADIOGRAPHS OF THE LEFT THIRD FINGER. NO EXPLANATION FOR PAIN. COMMENT: SITE OF TRAUMA/COMPLAINT MARKED/STAMP COMPLETED: YES. TECHNICAL DOCUMENTATION: JOB ID: [id number] [employer]- All Rights Reserved Reading location - IP/workstation name: [email or web address]
== END ==
LOC: OD 12:43
PROVIDERS: ATTEND Nurse Practitioner Family
DX: M79.645 Pain in left finger(s) (principal)

== ENCOUNTER → 2018-05-04 | Outpatient (CLI) | payer OTHER ==
[2018-05-04 14:36] LABS: ANION GAP 13 (5-19); BLOOD UREA NITROGEN 15 mg/dL (7-20); CALCIUM 10.2 mg/dL (8.4-10.2); CARBON DIOXIDE 28 mmol/L (22-30); CHLORIDE 101 mmol/L (98-107); GLUCOSE 78 mg/dL (75-110); POTASSIUM 4.9 mmol/L (3.6-5.0); SODIUM 141.9 mmol/L (137-145)
== END ==
LOC: OD 12:59
PROVIDERS: ATTEND Internal Medicine Cardiovascular Disease
DX: R00.2 Palpitations (principal); I10 Essential (primary) hypertension
CPT/HCPCS: 36415; 80048

== ENCOUNTER 2018-09-04 08:10 | Emergency (ER) | payer OTHER ==
[2018-09-04] MEDS ORDERED: IPRATROPIUM/ALBUTEROL 0.5-2.5 MG/3 ML AMPUL NEB ONE (09:36)
[2018-09-04] MEDS ORDERED: LIDOCAINE 1% INJ-PF (10 MG/ML) 30 ML SDV NEB ONE (09:37)
[2018-09-04] MEDS ORDERED: PREDNISONE 20 MG TABLET PO ONE (09:38)
[2018-09-04] MEDS ORDERED: HYDROCODONE/ACETAMINOPHEN 5-325 MG TABLET PO ONE (09:38)
--- NOTE | 2018-09-04 10:05 | RADIOLOGY REPORT (SQ) ---
EXAM DESCRIPTION: CHEST 2 VIEWS COMPLETED DATE/TIME: 09/04/2018 9:49 am REASON FOR STUDY: productive cough X 4 days COMPARISON: 11/28/2017. EXAM PARAMETERS: NUMBER OF VIEWS: two views TECHNIQUE: Digital Frontal and Lateral radiographic views of the chest acquired. RADIATION DOSE: NA LIMITATIONS: none FINDINGS: LUNGS AND PLEURA: No opacities, masses or pneumothorax. No pleural effusion. MEDIASTINUM AND HILAR STRUCTURES: No masses or contour abnormalities. HEART AND VASCULAR STRUCTURES: Heart normal size. No evidence for failure. BONES: No acute findings. HARDWARE: None in the chest. OTHER: No other significant finding. IMPRESSION: NO ACUTE RADIOGRAPHIC FINDING IN THE CHEST. TECHNICAL DOCUMENTATION: JOB ID: [id number] [employer]- All Rights Reserved Reading location - IP/workstation name: [email or web address]
[2018-09-04 11:17] VITALS: BP 125/73
--- NOTE | 2018-09-04 13:38 | EKG REPORT ---
SEVERITY:- ABNORMAL ECG - SINUS RHYTHM NONSPECIFIC T ABNORMALITIES, ANTERIOR LEADS, UNCHANGED FROM PREV. EKG : Confirmed by: Yeyo Eisenberg MD 04-Sep-2018 13:38:03
--- NOTE | 2018-09-04 14:48 | ER Document Report ---
Entered by BERTHA QUESADA SCRIBE 09/04/18 0946 Acting as scribe for:KEYANA BARKSDALE MD ED General - General Chief Complaint: Shortness Of Breath Stated Complaint: DIFFICULTY BREATHING Time Seen by Provider: 09/04/18 09:22 Primary Care Provider: LICHA DIAZ MD [EMERITUS] - Follow up as needed Mode of Arrival: Ambulatory Information source: Patient Notes: Patient is a 38 year old male presenting to the emergency department complaining of multiple symptoms including shortness of breath, a cough and chest pain onset 4 days ago. Patient states her shortness of breath has been worsening and states an albuterol inhaler, elderberry and NyQuil has not helped her symptoms. She describes her cough as productive with green/brown sputum. She describes her chest pain as a tightness and further states it "it feels bruised and is tender when I touch it". She states she presented to her PCP 4 days ago and was given a rocephin shot and doxycycline and sent home. She states she feels her symptoms are worsening since taking doxycycline. She reports receiving her flu shot this season. TRAVEL OUTSIDE OF THE [place] IN LAST 30 DAYS: No - Related Data Allergies/Adverse Reactions: No Known Allergies Allergy (Verified 04/08/16 18:08) Past Medical History - General Information source: Patient - Social History Smoking Status: Never Smoker Cigarette use (# per day): No Chew tobacco use (# tins/day): No Smoking Education Provided: No Frequency of alcohol use: None Family History: CAD - Extensive family history of coronary artery disease Patient has suicidal ideation: No Patient has homicidal ideation: No - Past Medical History Cardiac Medical History: Reports: Hx Hypertension Neurological Medical History: Reports: Hx Migraine GI Medical History: Reports: Hx Irritable Bowel Psychiatric Medical History: Reports: Hx Depression Past Surgical History: Reports: Hx Bowel Surgery - colon resection, rectal prolapse, Hx Cholecystectomy, Hx Gynecologic Surgery, Hx Hysterectomy, Hx Urinary Tract Surgery - bladder/vaginal prolapse - Immunizations Hx Diphtheria, Pertussis, Tetanus Vaccination: Yes Review of Systems - Review of Systems Constitutional: No symptoms reported EENT: No symptoms reported Cardiovascular: See HPI, Chest pain Respiratory: See HPI, Cough, Short of breath, Wheezing Gastrointestinal: No symptoms reported Genitourinary: No symptoms reported Female Genitourinary: No symptoms reported Musculoskeletal: No symptoms reported Skin: No symptoms reported Hematologic/Lymphatic: No symptoms reported Neurological/Psychological: No symptoms reported -: Yes All other systems reviewed and negative Physical Exam - Vital signs Vitals: Temp Pulse Resp BP Pulse Ox 98.4 F 64 16 127/70 H 97 09/04/18 08:24 09/04/18 08:24 09/04/18 08:24 09/04/18 08:24 09/04/18 08:24 - Notes Notes: GENERAL: Alert, interacts well. No acute distress. HEAD: Normocephalic, atraumatic. EYES: Pupils equal, round, and reactive to light. Extraocular movements intact. ENT: Oral mucosa moist, tongue midline. Nares patent, no nasal septal hematoma, TM's intacts. NECK: Full range of motion. Supple. Trachea midline. LUNGS: Rhonchi and wheezes with cough. No respiratory distress. HEART: Regular rate and rhythm. No murmurs, gallops, or rubs. ABDOMEN: Soft, non-tender. Non-distended. Bowel sounds present in all 4 quadrants. No guarding, rigidity, or rebound. EXTREMITIES: Moves all 4 extremities spontaneously. NEUROLOGICAL: Alert and oriented x3. Normal speech. PSYCH: Normal affect, normal mood. SKIN: Warm, dry, normal turgor. No rashes or lesions noted. Course - Vital Signs Vital signs: Temp Pulse Resp BP Pulse Ox 98.5 F 87 18 125/73 100 09/04/18 11:12 09/04/18 11:12 09/04/18 11:12 09/04/18 11:12 09/04/18 11:12 - Diagnostic Test Radiology reviewed: Image reviewed, Reports reviewed - Chest x-ray does not show an acute cardiopulmonary process. Discharge - Discharge Clinical Impression: Viral upper respiratory tract infection with cough, Acute chest wall pain Disposition: HOME, SELF-CARE I personally performed the services described in the documentation, reviewed and edited the documentation which was dictated to the scribe in my presence, and it accurately records my words and actions.
== END 2018-09-04 11:17 | disposition home or self-care (01) ==
LOC: ER 08:10
DX: J06.9 Acute upper respiratory infection, unspecified (principal); B97.89 Other viral agents as the cause of diseases classified elsewhere; R05 Cough; R07.89 Other chest pain; R06.02 Shortness of breath; I10 Essential (primary) hypertension
CPT/HCPCS: 93005; 94640; 99285; 71046; 93010; J3490; J7512; J7620

== ENCOUNTER 2018-09-17 19:37 | Emergency (ER) | payer OTHER ==
[2018-09-17 19:59] VITALS: BP 119/60
--- NOTE | 2018-09-17 21:14 | RADIOLOGY REPORT (SQ) ---
EXAM DESCRIPTION: XR CHEST 2 VIEWS COMPLETED DATE/TME: 09/17/2018 20:15 CLINICAL HISTORY: right side pain hx of flu cough COMPARISON: None FINDINGS: Cardiac silhouette is within normal limits. There is no focal parenchymal or pleural disease. There is no acute osseous process visualized. IMPRESSION: No evidence of acute cardiopulmonary disease.
[2018-09-17] MEDS ORDERED: KETOROLAC TROMETHAMINE 60 MG/2 ML SDV IM ONE (22:37)
[2018-09-17] MEDS ORDERED: LIDOCAINE 5% (700 MG) TRANSDERMAL ADH..PATCH TP ONE (22:37)
[2018-09-17] MEDS ORDERED: MORPHINE SULFATE IR 15 MG TABLET PO ONE (22:37)
[2018-09-17] MEDS ORDERED: ACETAMINOPHEN 325 MG TABLET PO ONE (22:37)
--- NOTE | 2018-09-17 22:40 | ER Document Report ---
ED General - General Chief Complaint: Abdominal Pain Stated Complaint: RIGHT SIDED PAIN Time Seen by Provider: 09/17/18 20:15 Primary Care Provider: LAURYN RICARDO PA-C [Primary Care Provider] - Follow up in 3-5 days Notes: Patient is a 38-year-old female with past medical history of hypertension, hyperlipidemia, presents with pain to the right lower ribs that has been ongoing for the past 2 days. Patient states the area started as a dull, aching discomfort and has moderately worsened over that time. She states that the pain is worsened by breathing, moving or raising her right arm. Touching the area also dramatically worsens the pain. States that she has tried ibuprofen and naproxen with minimal to no relief. Denies history of similar symptoms in the past. She does have a past surgical history of a cholecystectomy and hysterectomy. She denies any history of DVT or pulmonary embolus. Does not take any form of estrogen. Denies any shortness of breath, hemoptysis or syncope. Has not seen her primary care doctor regarding today's concerns. Denies any trauma to the area. TRAVEL OUTSIDE OF THE [place] IN LAST 30 DAYS: No - Related Data Allergies/Adverse Reactions: tramadol Allergy (Verified 09/17/18 20:26) itching Past Medical History - General Information source: Patient - Social History Smoking Status: Current Every Day Smoker Frequency of alcohol use: Social Drug Abuse: Marijuana Lives with: Spouse/Significant other Family History: CAD - Extensive family history of coronary artery disease Patient has suicidal ideation: No Patient has homicidal ideation: No - Past Medical History Cardiac Medical History: Reports: Hx Hypertension Denies: Hx Coronary Artery Disease, Hx Heart Attack Pulmonary Medical History: Denies: Hx Asthma, Hx Bronchitis, Hx COPD, Hx Pneumonia Neurological Medical History: Reports: Hx Migraine. Denies: Hx Cerebrovascular Accident, Hx Seizures Renal/ Medical History: Denies: Hx Peritoneal Dialysis GI Medical History: Reports: Hx Irritable Bowel. Denies: Hx Hepatitis, Hx Hiatal Hernia, Hx Ulcer Musculoskeletal Medical History: Denies Hx Arthritis Psychiatric Medical History: Reports: Hx Depression Infectious Medical History: Denies: Hx Hepatitis Past Surgical History: Reports: Hx Bowel Surgery - colon resection, rectal prolapse, Hx Cholecystectomy, Hx Gynecologic Surgery - bladder/ vaginal prolapse, Hx Hysterectomy, Hx Urinary Tract Surgery - bladder/vaginal prolapse. Denies: Hx Mastectomy, Hx Open Heart Surgery, Hx Pacemaker - Immunizations Hx Diphtheria, Pertussis, Tetanus Vaccination: Yes Review of Systems - Review of Systems Notes: Constitutional: Negative for fever. HENT: Negative for sore throat. Eyes: Negative for visual changes. Cardiovascular: Negative for chest pain. Respiratory: Negative for shortness of breath. Gastrointestinal: Negative for abdominal pain, vomiting or diarrhea. Genitourinary: Negative for dysuria. Musculoskeletal: Positive for right lower rib pain Skin: Negative for rash. Neurological: Negative for headaches, weakness or numbness. 10 point ROS negative except as marked above and in HPI. Physical Exam - Vital signs Vitals: Temp Pulse Resp BP Pulse Ox 98.6 F 52 L 16 119/60 99 09/17/18 19:58 09/17/18 19:58 09/17/18 19:58 09/17/18 19:58 09/17/18 19:58 Interpretation: Bradycardic Notes: PHYSICAL EXAMINATION: GENERAL: Well-appearing, well-nourished and in no acute distress. HEAD: Atraumatic, normocephalic. EYES: Pupils equal round and reactive to light, extraocular movements intact, sclera anicteric, conjunctiva are normal. ENT: nares patent, oropharynx clear without exudates. Moist mucous membranes. NECK: Normal range of motion, supple without lymphadenopathy LUNGS: Breath sounds clear to auscultation bilaterally and equal. No wheezes rales or rhonchi. HEART: Regular rate and rhythm without murmurs Chest wall: Reproduction of pain on palpation of the right lower rib spaces without obvious bruising or deformity of the area. ABDOMEN: Soft, nontender, normoactive bowel sounds. No guarding, no rebound. No masses appreciated. EXTREMITIES: Normal range of motion, no pitting or edema. No cyanosis. NEUROLOGICAL: No focal neurological deficits. Moves all extremities spontaneously and on command. PSYCH: Normal mood, normal affect. SKIN: Warm, Dry, normal turgor, no rashes or lesions noted. Course - Re-evaluation Re-evalutation: 09/17/18 22:37 Patient presents with right lower rib pain. Pain is reproducible on palpation as well as with movement and breathing. Patient is PERC criteria negative, low clinical suspicion for pulmonary embolus. Denies shortness of breath. No tachypnea or hypoxemia at time of arrival. Pain controlled here in the emergency department with narcotic and anti-inflammatory analgesics. Chest x- ray without evidence of acute fracture, pneumothorax or pulmonary contusion. Patient does not have abdominal tenderness it is entirely localized over the lower right rib spaces. She is status post cholecystectomy, biliary pathology seems extremely unlikely given history and absence of gallbladder. Urinalysis is clear without evidence of pyelonephritis. At this time will discharge with return precautions and follow-up recommendations. Verbal discharge instructions given at the bedside and opportunity for questions given. Medication warnings reviewed. Patient is in agreement with this plan and has verbalized understanding of return precautions and the need for primary care follow-up in the next 24-72 hours. - Vital Signs Vital signs: Temp Pulse Resp BP Pulse Ox 98.6 F 52 L 16 119/60 99 09/17/18 19:58 09/17/18 19:58 09/17/18 19:58 09/17/18 19:58 09/17/18 19:58 - Diagnostic Test Radiology reviewed: Image reviewed, Reports reviewed Radiology results interpreted by me: 09/17/18 22:38 Chest x-ray: No acute rib fractures or pneumothorax Discharge - Discharge Clinical Impression: Rib pain on right side, Chest wall pain, Costochondritis Condition: Good Disposition: HOME, SELF-CARE Additional Instructions: Your chest wall pain is due to inflation of the muscles between your ribs. This pain can last for up to 6 weeks. It is very important that you continue to take purposeful deep breaths. For your pain: Continue to take ibuprofen 600 mg every 6 hours or Tylenol 1000 mg every 6 hours. Apply local lidocaine to the area per bottle instructions. There is a product sold [id number] called "Aspercreme with lidocaine" that you can use for this purpose. Please follow-up with your primary care doctor in the next 2-3 days. Return to the emergency department immediately if you develop worsening shortness of breath, increased pain, begin coughing blood, pass out, or have any other symptoms that are worrisome to you. Referrals: LAURYN RICARDO PA-C [Primary Care Provider] - Follow up in 3-5 days
[2018-09-17 23:01] LABS: APPEARANCE,URINE CLEAR; BILIRUBIN,URINE NEGATIVE (NEGATIVE); COLOR,URINE YELLOW; GLUCOSE, URINE NEGATIVE (NEGATIVE); KETONES,URINE NEGATIVE (NEGATIVE); LEUKOCYTE ESTERASE,URINE NEGATIVE (NEGATIVE); NITRITE,URINE NEGATIVE (NEGATIVE); PROTEIN,URINE NEGATIVE (NEGATIVE); URINE SPECIFIC GRAVITY 1.015; UROBILINOGEN,URINE NEGATIVE mg/dL (<2.0)
== END 2018-09-17 23:29 | disposition home or self-care (01) ==
LOC: ER 19:37
DX: R07.81 Pleurodynia (principal); R07.89 Other chest pain; M94.0 Chondrocostal junction syndrome [Tietze]; R10.9 Unspecified abdominal pain; F17.200 Nicotine dependence, unspecified, uncomplicated; I10 Essential (primary) hypertension; E78.5 Hyperlipidemia, unspecified
CPT/HCPCS: 99283; 96372; 81001; 71046; J1885

== ENCOUNTER 2018-10-16 11:08 | Day surgery (SDC) | payer OTHER ==
[~2018-10-16 11:08] MED LIST: PROPOFOL INJ 200 MG/20 ML VIAL IV ONE
--- NOTE | 2018-10-16 12:45 | Operative Report ---
Operative Report DATE OF SURGERY: 10/16/18 Operative Report: The risks, benefits and alternatives of the procedure including the risk of bleeding, perforation requiring surgery have been explained to the patient in detail and informed consent is obtained. Patient is taken back to the endoscopy suite and placed in a left, lateral decubital position. Timeout was called. Propofol medication is administered. A rectal examination is done which did not reveal any masses, tears or fissures. An Olympus videoscope was introduced into the patient's rectum. The scope was then carefully advanced all the way to the cecum. The cecum was identified by the usual anatomical landmarks including the ileocecal valve as well as the appendiceal office. Photodocumentation is obtained. The scope was then sequentially pulled back via the rest segments of the colon including the ascending colon, hepatic flexure, transverse colon, splenic flexure, descending colon and finally into the rectosigmoid portions of the colon. Retroflexion maneuver was performed. The risks benefits and alternatives of the procedure explained to the patient in detail and informed consent is obtained.A GIF Olympus video scope was inserted into the patient's mouth and hypopharynx, the esophagus is identified intubated and insufflated, the scope was then advanced through the esophagus stomach and duodenum, retroflexion maneuver is done, the esophagus stomach and first and second portions of the duodenum examined. PREOPERATIVE DIAGNOSIS: Epigastric pain. Blood in stool POSTOPERATIVE DIAGNOSIS: Mild right-sided colon inflammation status post biopsy. Gastritis status post biopsy. Hiatal hernia OPERATION: Colonoscopy with biopsy. EGD with biopsy SURGEON: WIL INGRAM ANESTHESIA: LMAC TISSUE REMOVED OR ALTERED: As noted above. COMPLICATIONS: None. ESTIMATED BLOOD LOSS: None. INTRAOPERATIVE FINDINGS: As noted above. PROCEDURE: Patient tolerated the procedure well. No immediate postprocedure complications are noted. Patient discharged in good condition. Discharge date 10/16/2018. Discharge diet: Regular. Discharge activity: Regular. 2-3-week follow-up to discuss findings. Patient is instructed to call the office and proceed to the emergency room should there be any further problems or questions. Wait on the pathology.
[2018-10-16 13:02] VITALS: BP 126/79
== END 2018-10-16 12:50 | disposition home or self-care (01) ==
LOC: END 11:08
PROVIDERS: ATTEND Internal Medicine Gastroenterology
PROC: 0DBF8ZX Excision of Right Large Intestine, Via Natural or Artificial Opening Endoscopic, Diagnostic (ICD-10-PCS; principal; 2018-10-16 14:30)
PROC: 0DB68ZX Excision of Stomach, Via Natural or Artificial Opening Endoscopic, Diagnostic (ICD-10-PCS; 2018-10-16 14:30)
DX: K29.50 Unspecified chronic gastritis without bleeding (principal); K52.9 Noninfective gastroenteritis and colitis, unspecified; K92.1 Melena; F32.9 Major depressive disorder, single episode, unspecified; J45.990 Exercise induced bronchospasm; F41.9 Anxiety disorder, unspecified; G43.909 Migraine, unspecified, not intractable, without status migrainosus; J30.9 Allergic rhinitis, unspecified; Z79.82 Long term (current) use of aspirin; Z79.899 Other long term (current) drug therapy
CPT/HCPCS: 43239; 45380; 813; 88305; J2704

== ENCOUNTER → 2018-12-19 | Outpatient (CLI) | payer OTHER ==
[2018-12-19 14:27] LABS: ALANINE AMINOTRANSFERASE 31 U/L (9-52); ALBUMIN 4.3 g/dL (3.5-5.0); ALKALINE PHOSPHATASE 66 U/L (38-126); ANION GAP 9 (5-19); ASPARTATE AMINO TRANSFERASE 26 U/L (14-36); BILIRUBIN,DIRECT 0.2 mg/dL (0.0-0.4); BILIRUBIN,TOTAL 0.4 mg/dL (0.2-1.3); BLOOD UREA NITROGEN 15 mg/dL (7-20); CALCIUM 9.8 mg/dL (8.4-10.2); CARBON DIOXIDE 28 mmol/L (22-30); CHLORIDE 103 mmol/L (98-107); CHOLESTEROL 169.65 mg/dL (0-200); GLUCOSE 92 mg/dL (75-110); POTASSIUM 4.6 mmol/L (3.6-5.0); SODIUM 139.6 mmol/L (137-145); TOTAL PROTEIN 6.6 g/dL (6.3-8.2); TRIGLYCERIDES 134 mg/dL (<150)
[2018-12-19 14:38] LABS: DIRECT LDL 81 mg/dL (<100)
== END ==
LOC: OD 13:18
PROVIDERS: ATTEND Internal Medicine Cardiovascular Disease
DX: E78.00 Pure hypercholesterolemia, unspecified (principal); I10 Essential (primary) hypertension; R00.2 Palpitations; Z79.899 Other long term (current) drug therapy
CPT/HCPCS: 36415; 80048; 80061; 80076

== ENCOUNTER → 2019-01-01 | Outpatient (CLI) | payer OTHER | LOC: RAD 09:22 | PROVIDERS: ATTEND Nurse Practitioner Family | DX: N64.4 Mastodynia (principal) | CPT/HCPCS: 77049; A9576 ==

== ENCOUNTER → 2019-01-10 | Outpatient (CLI) | payer OTHER ==
[2019-01-10 13:54] LABS: HEMATOCRIT 35.9 % (36.0-47.0); HEMOGLOBIN 11.9 g/dL (12.0-15.5); MEAN CORPUSCULAR HEMOGLOBIN 31.9 pg (27.0-33.4); MEAN CORPUSCULAR HGB CONC 33.1 g/dL (32.0-36.0); MEAN CORPUSCULAR VOLUME 96 fl (80-97); PLATELET COUNT 199 10^3/uL (150-450); RED BLOOD COUNT 3.73 10^6/uL (3.72-5.28); RED CELL DISTRIBUTION WIDTH 13.3 % (11.5-14.0); WHITE BLOOD COUNT 5.5 10^3/uL (4.0-10.5)
[2019-01-10 14:13] LABS: ALANINE AMINOTRANSFERASE 33 U/L (9-52); ALBUMIN 4.6 g/dL (3.5-5.0); ALKALINE PHOSPHATASE 68 U/L (38-126); ANION GAP 6 (5-19); ASPARTATE AMINO TRANSFERASE 44 U/L (14-36); BILIRUBIN,DIRECT 0.2 mg/dL (0.0-0.4); BILIRUBIN,TOTAL 0.4 mg/dL (0.2-1.3); BLOOD UREA NITROGEN 13 mg/dL (7-20); CALCIUM 9.8 mg/dL (8.4-10.2); CARBON DIOXIDE 29 mmol/L (22-30); CHLORIDE 104 mmol/L (98-107); CHOLESTEROL 223.36 mg/dL (0-200); CREATINE KINASE 113 U/L (30-135); GLUCOSE 85 mg/dL (75-110); SODIUM 138.8 mmol/L (137-145); TOTAL PROTEIN 6.9 g/dL (6.3-8.2); TRIGLYCERIDES 107 mg/dL (<150)
[2019-01-10 14:15] LABS: POTASSIUM 4.3 mmol/L (3.6-5.0)
[2019-01-10 14:23] LABS: DIRECT LDL 117 mg/dL (<100)
== END ==
LOC: OD 12:40
PROVIDERS: ATTEND Internal Medicine Cardiovascular Disease
DX: E78.00 Pure hypercholesterolemia, unspecified (principal); R94.5 Abnormal results of liver function studies; R07.89 Other chest pain; E66.8 Other obesity; R00.2 Palpitations; M62.82 Rhabdomyolysis
CPT/HCPCS: 36415; 80048; 80061; 80076; 82550; 83525; 83735; 84443; 85027; 86141

== ENCOUNTER 2019-09-01 14:02 | Emergency (ER) | payer OTHER ==
[2019-09-01] MEDS ORDERED: KETOROLAC TROMETHAMINE 60 MG/2 ML SDV IM ONE (14:35)
--- NOTE | 2019-09-01 14:36 | ER Document Report ---
HPI - HPI Time Seen by Provider: 09/01/19 14:27 Pain Level: 3 Notes: CHIEF COMPLAINT: Cough and left chest pain HPI: 39-year-old female presenting to the emergency department for evaluation of 5 days of coughing with 4 days of discomfort in the left chest after coughing. Patient states that the pain in the left chest is sharp in nature worse with deep breathing. No fever. Pain worsens with movement and palpation. No abdominal pain. ROS: See HPI - all other systems were reviewed and are otherwise negative Constitutional: no fever Eyes: no drainage, no blurred vision ENT: Positive runny nose, no sore throat Cardiovascular: Positive chest wall pain Resp: no SOB, no cough GI: no vomiting, no diarrhea, no abdominal pain : no dysuria Integumentary: no rash Allergy: no hives Musculoskeletal: no extremity pain or swelling Neurological: no numbness/tingling, no weakness MEDICATIONS: I agree with the patient medications as charted by the RN. ALLERGIES: I agree with the allergies as charted by the RN. PAST MEDICAL HISTORY/PAST SURGICAL HISTORY: Reviewed and agree as charted by RN. SOCIAL HISTORY: Reviewed and agree as charted by RN. FAMILY HISTORY: No significant familial comorbid conditions directly related to patient complaint EXAM: With female woven label designer present Reviewed vital signs as charted by RN. CONSTITUTIONAL: Alert and oriented and responds appropriately to questions. Well-appearing; well-nourished, mild distress secondary to pain HEAD: Normocephalic; atraumatic EYES: PERRL; Conjunctivae clear, sclerae non-icteric ENT: normal nose; no rhinorrhea; moist mucous membranes; pharynx without lesions noted, no uvula edema or deviation, no tonsillar hypertrophy, phonation normal NECK: Supple without meningismus; non-tender; no cervical lymphadenopathy, no masses CARD: RRR; no murmurs, no clicks, no rubs, no gallops; symmetric distal pulses. There is tenderness to the left lower and anterior chest wall on palpation RESP: Normal chest excursion without splinting or tachypnea; breath sounds clear and equal bilaterally; no wheezes, no rhonchi, no rales, pulse oximetry 100% on room air not hypoxic ABD/GI: Normal bowel sounds; non-distended; soft, non-tender, no rebound, no guarding; no palpable organomegaly or masses. BACK: The back appears normal and is non-tender to palpation, there is no CVA tenderness EXT: Normal ROM in all joints; non-tender to palpation; no cyanosis, no effusions, no edema SKIN: Normal color for age and race; warm; dry; good turgor; no acute lesions noted NEURO: Moves all extremities equally; Motor and sensory function intact PSYCH: The patient's mood and manner are appropriate. Grooming and personal hygiene are appropriate. MDM: 39-year-old female who presents with upper respiratory symptoms over the last 5 days progressive sharp chest wall pain for 4 days. Has had pleurisy and costochondritis in the past. Patient has reproducible pain on palpation, low suspicion for ACS. PERC negative. She had a hysterectomy previously is not on estrogen or control. Will obtain chest x-ray to evaluate for infiltrate or pneumothorax. EKG normal sinus rhythm with some flattening of the anterior and lateral leads that are unchanged from her EKG September 06, 2018. - REPRODUCTIVE Reproductive: DENIES: : Past Medical History - Social History Smoking Status: Never Smoker Chew tobacco use (# tins/day): No Frequency of alcohol use: None Drug Abuse: None Family History: CAD Patient has suicidal ideation: No Patient has homicidal ideation: No - Past Medical History Cardiac Medical History: Reports: Hx Coronary Artery Disease, Hx Hypertension Denies: Hx Heart Attack Pulmonary Medical History: Denies: Hx Asthma, Hx Bronchitis, Hx COPD, Hx Pneumonia Neurological Medical History: Reports: Hx Migraine. Denies: Hx Cerebrovascular Accident, Hx Seizures Renal/ Medical History: Denies: Hx Peritoneal Dialysis GI Medical History: Reports: Hx Irritable Bowel. Denies: Hx Hepatitis, Hx Hiatal Hernia, Hx Ulcer Musculoskeletal Medical History: Denies Hx Arthritis Psychiatric Medical History: Reports: Hx Depression Infectious Medical History: Denies: Hx Hepatitis Past Surgical History: Reports: Hx Bowel Surgery - colon resection, rectal prolapse, Hx Cholecystectomy, Hx Gynecologic Surgery - bladder/ vaginal prolapse, Hx Hysterectomy, Hx Urinary Tract Surgery - bladder/vaginal prolapse. Denies: Hx Mastectomy, Hx Open Heart Surgery, Hx Pacemaker - Immunizations Hx Diphtheria, Pertussis, Tetanus Vaccination: Yes Vertical Provider Document - INFECTION CONTROL TRAVEL OUTSIDE OF THE [place] IN LAST 30 DAYS: No Course - Re-evaluation Re-evalutation: 09/01/19 15:12 Chest x-ray on my review does not show evidence of pneumothorax or infiltrate. Patient likely has costochondritis from a viral upper respiratory infection. I will place the patient on albuterol, steroids, Voltaren, follow-up PCP with strict return instructions - Vital Signs Vital signs: Temp Pulse Resp BP Pulse Ox 98.1 F 59 L 20 141/82 H 100 09/01/19 14:18 09/01/19 14:18 09/01/19 14:18 09/01/19 14:18 09/01/19 14:18 Discharge - Discharge Clinical Impression: Viral URI with cough, Costochondritis, acute Condition: Stable Disposition: HOME, SELF-CARE Additional Instructions: Medications as prescribed. Use the albuterol inhaler 2 puffs every 4 hours as needed for spastic cough. Follow-up with your primary care provider on Tuesday for reevaluation of symptoms Prescriptions: Prednisone [Deltasone 20 mg Tablet] 2 tab PO DAILY 5 Days #10 tablet Albuterol Sulfate [Proair HFA Inhalation Aerosol 8.5 gm MDI] 2 puff IH Q4H PRN #1 mdi PRN Reason: Diclofenac Sodium [Voltaren 50 Mg Tablet.] 50 mg PO BID #20 tablet. Referrals: LICHA DIAZ MD [Primary Care Provider] - Follow up as needed
--- NOTE | 2019-09-01 14:48 | EKG REPORT ---
SEVERITY:- BORDERLINE ECG - SINUS RHYTHM BORDERLINE T ABNORMALITIES, ANTERIOR LEADS : Confirmed by: Yeyo Eisenberg MD 01-Sep-2019 14:47:38
--- NOTE | 2019-09-01 15:16 | RADIOLOGY REPORT (SQ) ---
EXAM DESCRIPTION: CHEST 2 VIEWS COMPLETED DATE/TIME: 09/01/2019 2:49 pm REASON FOR STUDY: cough left chest pain COMPARISON: None. EXAM PARAMETERS: NUMBER OF VIEWS: two views TECHNIQUE: Digital Frontal and Lateral radiographic views of the chest acquired. RADIATION DOSE: NA LIMITATIONS: none FINDINGS: LUNGS AND PLEURA: No opacities, masses or pneumothorax. No pleural effusion. MEDIASTINUM AND HILAR STRUCTURES: No masses or contour abnormalities. HEART AND VASCULAR STRUCTURES: Heart normal size. No evidence for failure. BONES: No acute findings. HARDWARE: None in the chest. OTHER: No other significant finding. IMPRESSION: NO ACUTE RADIOGRAPHIC FINDING IN THE CHEST. TECHNICAL DOCUMENTATION: JOB ID: [id number] 2010 [employer]- All Rights Reserved Reading location - IP/workstation name: [email or web address]
[2019-09-01 15:47] VITALS: BP 138/80
== END 2019-09-01 15:51 | disposition home or self-care (01) ==
LOC: ER 14:02
DX: J06.9 Acute upper respiratory infection, unspecified (principal); M94.0 Chondrocostal junction syndrome [Tietze]; R05 Cough; R07.9 Chest pain, unspecified; R09.89 Other specified symptoms and signs involving the circulatory and respiratory systems; R07.89 Other chest pain; I25.10 Atherosclerotic heart disease of native coronary artery without angina pectoris; I10 Essential (primary) hypertension
CPT/HCPCS: 93005; 99284; 96372; 71046; 93010; J1885

== ENCOUNTER 2020-03-10 09:56 | Emergency (ER) | payer OTHER ==
--- NOTE | 2020-03-10 10:41 | ER Document Report ---
HPI - HPI Time Seen by Provider: 03/10/20 10:35 Context: Patient is a 39-year-old female who presents emergency department with a chief complaint of left knee pain. Patient reports she has had a aching sensation that will intermittently occur over the past year in the same knee. Patient reports after getting back into exercise and fitness 2 weeks ago she was running when she developed an acute onset of posterior and medial left knee pain. Patient reports there is no position of comfort and hurts with any type of movement. Patient reports attempting [id number] medications such as Advil, Tylenol, ibuprofen and using Biofreeze without help. Patient denies a fall. - REPRODUCTIVE Reproductive: DENIES: : Past Medical History - General Information source: Patient - Social History Smoking Status: Unknown if Ever Smoked Lives with: Family Family History: CAD - Past Medical History Cardiac Medical History: Reports: Hx Coronary Artery Disease, Hx Hypertension Denies: Hx Heart Attack Pulmonary Medical History: Reports: None Denies: Hx Asthma, Hx Bronchitis, Hx COPD, Hx Pneumonia EENT Medical History: Reports: None Neurological Medical History: Reports: Hx Migraine. Denies: Hx Cerebrovascular Accident, Hx Seizures Endocrine Medical History: Reports: None Renal/ Medical History: Reports: None. Denies: Hx Peritoneal Dialysis Malignancy Medical History: Reports: None GI Medical History: Reports: Hx Irritable Bowel. Denies: Hx Hepatitis, Hx Hiatal Hernia, Hx Ulcer Musculoskeletal Medical History: Reports None, Denies Hx Arthritis Skin Medical History: Reports None Psychiatric Medical History: Reports: Hx Depression Traumatic Medical History: Reports: None Infectious Medical History: Reports: None. Denies: Hx Hepatitis Past Surgical History: Reports: Hx Bowel Surgery - colon resection, rectal prolapse, Hx Cholecystectomy, Hx Gynecologic Surgery - bladder/ vaginal prolapse, Hx Hysterectomy, Hx Urinary Tract Surgery - bladder/vaginal prolapse. Denies: Hx Mastectomy, Hx Open Heart Surgery, Hx Pacemaker - Immunizations Hx Diphtheria, Pertussis, Tetanus Vaccination: Yes Vertical Provider Document - CONSTITUTIONAL Agree With Documented VS: Yes Exam Limitations: No Limitations General Appearance: No Apparent Distress - INFECTION CONTROL TRAVEL OUTSIDE OF THE [place] IN LAST 30 DAYS: No - HEENT HEENT: Atraumatic, Normocephalic, PERRLA - NECK Neck: Normal Inspection - RESPIRATORY Respiratory: Breath Sounds Normal, No Respiratory Distress - CARDIOVASCULAR Cardiovascular: Regular Rate, Regular Rhythm - GI/ABDOMEN Gastrointestinal: Abdomen Soft, Abdomen Non-Tender - BACK Back: Normal Inspection - MUSCULOSKELETAL/EXTREMETIES Musculoskeletal/Extremeties: No Edema Notes: Slight tenderness to the medial aspect of the left knee and posterior knee. Patient does have a +2 palpable popliteal, dorsalis pedis and posterior tibial pulse. There is no ecchymosis or discoloration of the skin around the knee. Patient can flex and extend the knee but this does cause discomfort. Patient reports she can bear weight but this also causes significant discomfort. No tenderness over the patella. Patella tendon palpated and intact. Course - Re-evaluation Re-evalutation: 03/10/20 10:41 We will obtain an x-ray. - Vital Signs Vital signs: Temp Pulse Resp BP Pulse Ox 98.8 F 56 L 16 132/72 H 97 03/10/20 10:27 03/10/20 10:27 03/10/20 10:27 03/10/20 10:27 03/10/20 10:27 Discharge - Discharge Clinical Impression: Right knee pain Qualifiers: Chronicity: acute Qualified Code(s): M25.561 - Pain in right knee Condition: Stable Disposition: HOME, SELF-CARE Additional Instructions: Today are seen in the emergency department for knee pain. Your x-ray was negative for any acute bony abnormality. We have provided you with a temitope wrap as well as crutches. Please continue to use this until your symptoms improve. Please ice, elevate and use anti-inflammatories. Follow-up with orthopedics. I provided you a referral. Prescriptions: Meloxicam [Qmiiz Odt] 15 mg PO DAILY PRN #10 tab.rapdis PRN Reason: For Pain Scale 4-5 Referrals: ABBY MARTIN DO [ACTIVE STAFF] - Follow up as needed
--- NOTE | 2020-03-10 11:35 | RADIOLOGY REPORT (SQ) ---
EXAM DESCRIPTION: KNEE LEFT 4 VIEW IMAGES COMPLETED DATE/TIME: 03/10/2020 11:25 am REASON FOR STUDY: left medial knee pain x 2 weeks after running COMPARISON: None. NUMBER OF VIEWS: Four views. TECHNIQUE: AP, lateral, and both oblique radiographic images acquired of the left knee. LIMITATIONS: None. FINDINGS: MINERALIZATION: Normal. BONES: No acute fracture or dislocation. No worrisome bone lesions. JOINT: No effusion. SOFT TISSUES: No soft tissue swelling. No radio-opaque foreign body. OTHER: No other significant finding. IMPRESSION: NEGATIVE STUDY OF THE LEFT KNEE. NO RADIOGRAPHIC EVIDENCE OF ACUTE INJURY. TECHNICAL DOCUMENTATION: JOB ID: [id number] 2010 [employer]- All Rights Reserved Reading location - IP/workstation name: [email or web address]
[2020-03-10 12:42] VITALS: BP 130/78
== END 2020-03-10 12:58 | disposition home or self-care (01) ==
LOC: ER 09:56
DX: M25.561 Pain in right knee (principal); M25.562 Pain in left knee; I25.10 Atherosclerotic heart disease of native coronary artery without angina pectoris; I10 Essential (primary) hypertension
CPT/HCPCS: 99283